=== PATIENT | male | born 1980 | race Hispanic/Latino ===

== ENCOUNTER → 2024-12-09 | Outpatient (CLI) | payer OTHER ==
--- NOTE | 2024-12-10 03:16 | HMCIMG ---
EXAM: CR Lumbar Spine, 3 views. CLINICAL HISTORY: Pain. COMPARISON: None provided. FINDINGS: Lumbar alignment is within normal limits. Mild spondylosis is evident by tiny marginal osteophytes at multiple levels. Normal intervertebral disc spaces. Normal vertebral body heights. No acute fracture. Soft tissues are within normal limits. IMPRESSION: No acute bony abnormality is evident. Mild spondylosis. /Bend
== END | disposition home or self-care (01) ==
LOC: RAH 15:15
PROVIDERS: ATTEND Internal Medicine
DX: M47.816 Spondylosis without myelopathy or radiculopathy, lumbar region (principal); M54.50 Low back pain, unspecified; M25.78 Osteophyte, vertebrae
CPT/HCPCS: 72100